=== PATIENT | female | born 1995 | race Caucasian/White ===

== ENCOUNTER 2017-10-16 18:25 | Emergency (ER) | payer OTHER ==
[2017-10-16] MEDS ORDERED: Sodium Chloride 0.9% 1000 ML 1,000 ML IV STA ×2 (18:48→20:12)
[2017-10-16] MEDS ORDERED: SUBLIMAZE 100 MCG/2 ML IV ONE (18:48)
[2017-10-16] MEDS ORDERED: Zofran 4 MG/2 ML VIAL IV ONE ×2 (18:48→20:09)
--- NOTE | 2017-10-16 18:52 | ERPHSYRPT ---
- History of Present Illness Historian: patient Exam Limitations: no limitations Patient Subjective Stated Complaint: pt states she had a sudden onset of right flank pain and right lower quads abdominal pain. states she has vomitied a few times. Triage Nursing Assessment: pt pale, warm, dry. abdomen soft, nontender. bowel sounds present in all 4 quaDS. Timing/Duration: today Quality: cramping Abdominal Pain Onset Location: RLQ Pain Radiation: back Severity of Pain-Max: severe Severity of Pain-Current: severe Modifying Factors: Improves With: nothing Associated Symptoms: loss of appetite, nausea, vomiting Previous symptoms: no prior history Hx Tetanus, Diphtheria Vaccination/Date Given: Yes (UP TO DATE) Hx Influenza Vaccination/Date Given: No Hx Pneumococcal Vaccination/Date Given: No Immunizations Up to Date: Yes <SANDHYA MARREROYESH - Last Filed: 10/16/17 18:54> <OFELIA BEGUM - Last Filed: 10/16/17 20:47> - History of Present Illness Time Seen by Provider: 10/16/17 18:50 Physician History: pt states she had a sudden onset of right flank pain and right lower quads abdominal pain. states she has vomitied a few times. (JANES,GERA) Allergies/Adverse Reactions: Penicillins Allergy (Verified 10/16/17 18:43) - Review of Systems Constitutional: No Fever, No Chills Eyes: No Symptoms Ears, Nose, & Throat: No Symptoms Respiratory: No Cough, No Dyspnea Cardiac: No Chest Pain, No Edema, No Syncope Abdominal/Gastrointestinal: Abdominal Pain, Nausea, Vomiting, No Diarrhea Genitourinary Symptoms: No Dysuria Musculoskeletal: No Back Pain, No Neck Pain Skin: No Rash Neurological: No Dizziness, No Focal Weakness, No Sensory Changes Psychological: No Symptoms Endocrine: No Symptoms All Other Systems: Reviewed and Negative <JANES,GERA - Last Filed: 10/16/17 18:54> - Past Medical History Pertinent Past Medical History: No Neurological History: No Pertinent History ENT History: No Pertinent History Cardiac History: No Pertinent History Respiratory History: No Pertinent History Endocrine Medical History: No Pertinent History Musculoskeletal History: No Pertinent History GI Medical History: No Pertinent History History: No Pertinent History Psycho-Social History: Anxiety, Other Female Reproductive Disorders: No Pertinent History - Past Surgical History Past Surgical History: No Musculoskeletal: Orthopedic Surgery Other Surgical History: braces on bilat feet with no surgery - Social History Smoking Status: Current every day smoker How long have you smoked: 5 Exposure to second hand smoke: Yes Drug Use: none Patient Lives Alone: No - Female History Hx Last Menstrual Period: NOW Hx Now: No <JANES Last Filed: 10/16/17 18:54> - Physical Exam General Appearance: no apparent distress, alert Eye Exam: PERRL/EOMI, eyes nml inspection Ears, Nose, Throat Exam: normal ENT inspection, pharynx normal, moist mucous membranes Neck Exam: normal inspection, non-tender, supple, full range of motion Respiratory Exam: normal breath sounds, lungs clear, No respiratory distress Cardiovascular Exam: regular rate/rhythm, normal heart sounds Gastrointestinal/Abdomen Exam: soft, tenderness (RLQ), No mass Back Exam: normal inspection, normal range of motion, No CVA tenderness, No vertebral tenderness Extremity Exam: normal inspection, normal range of motion, pelvis stable Neurologic Exam: alert, oriented x 3, cooperative, normal mood/affect, nml cerebellar function, sensation nml, No motor deficits Skin Exam: normal color, warm, dry SpO2: 97 Oxygen Delivery: Room Air <JANES - Last Filed: 10/16/17 18:54> - Nursing Vital Signs Nursing Vital Signs: Initial Vital Signs Temperature 98.8 F 10/16/17 18:39 Pulse Rate 74 10/16/17 18:39 Respiratory Rate 18 10/16/17 18:39 Blood Pressure 136/77 10/16/17 18:39 O2 Sat by Pulse Oximetry 97 10/16/17 18:39 Pain Scale Pain Intensity 2 - Course Nursing assessment & vital signs reviewed: Yes - CT Exams Abdomen/Pelvis CT Interpretation: Tele-radiologist Report <JANES Filed: 10/16/17 18:54> Ordered Tests: Active Orders 24 hr Category Date Time Status Clean Catch Urine Specimen STAT Care 10/16/17 18:45 Active IV Insertion STAT Care 10/16/17 18:44 Active ABDOMEN AND PELVIS W/0 CONTRAS [CT] Stat Exams 10/16/17 18:49 Taken AMYLASE Stat Lab 10/16/17 19:03 Completed CBC W DIFF Stat Lab 10/16/17 19:03 Completed CMP Stat Lab 10/16/17 19:03 Completed CULTURE,URINE Stat Lab 10/16/17 19:03 Received HCG QUALITATIVE,SERUM Stat Lab 10/16/17 19:05 Completed LIPASE Stat Lab 10/16/17 19:03 Completed Lactic Acid Stat Lab 10/16/17 19:07 Completed UA W/ MICROSCOPIC Stat Lab 10/16/17 19:03 Completed Urine Triage Profile Stat Lab 10/16/17 19:03 Completed Medication Summary Generic Name Dose Route Start Last Admin Trade Name Alfreda PRN Reason Stop Dose Admin Sodium Chloride 1,000 mls @ 999 mls/hr 10/16/17 20:12 10/16/17 20:29 Sodium Chloride 0.9% 1000 Ml IV 10/16/17 21:12 999 mls/hr .Q1H1M STA Administration Ceftriaxone Sodium/Dextrose 1 g in 50 mls @ 100 mls/hr 10/16/17 20:13 20:29 Rocephin 1 Gm-D5w 50 Ml Bag IV 10/16/17 20:42 100 mls/hr STAT STA Administration Tamsulosin HCl 0.4 mg 10/17/17 20:07 Flomax 0.4 Mg PO 10/17/17 20:08 ONCE ONE Discontinued Medications Generic Name Dose Route Start Last Admin Trade Name Alfreda PRN Reason Stop Dose Admin Ciprofloxacin 500 mg 10/16/17 20:08 Cipro 500 Mg PO 10/16/17 20:09 ONCE ONE Fentanyl Citrate 50 mcg 10/16/17 18:48 10/16/17 18:56 Sublimaze 100 Mcg/2 Ml IV 10/16/17 18:49 50 mcg STAT ONE Administration Fentanyl Citrate Confirm 10/16/17 18:53 Sublimaze 100 Mcg/2 Ml Administered 10/16/17 18:54 Dose 100 mcg .ROUTE .STK-MED ONE Sodium Chloride 1,000 mls @ 999 mls/hr 10/16/17 18:48 10/16/17 18:56 Sodium Chloride 0.9% 1000 Ml IV 10/16/17 19:48 999 mls/hr .Q1H1M STA Administration Sodium Chloride Confirm 10/16/17 18:53 Sodium Chloride 0.9% 1000 Ml Administered 10/16/17 18:54 Dose 1,000 mls @ ud .ROUTE .STK-MED ONE Sodium Chloride Confirm 10/16/17 20:27 Sodium Chloride 0.9% 1000 Ml Administered 10/16/17 20:28 Dose 1,000 mls @ ud .ROUTE .STK-MED ONE Ceftriaxone Sodium/Dextrose Confirm 10/16/17 20:27 Rocephin 1 Gm-D5w 50 Ml Bag Administered 10/16/17 20:28 Dose 1 g in 50 mls @ ud IV .STK-MED ONE Ketorolac Tromethamine 30 mg 10/16/17 19:56 10/16/17 20:04 Toradol 30 Mg Injection IV 10/16/17 19:57 30 mg STAT ONE Administration Ketorolac Tromethamine Confirm 10/16/17 20:03 Toradol 30 Mg Injection Administered 10/16/17 20:04 Dose 30 mg .ROUTE .STK-MED ONE Ondansetron HCl 4 mg 10/16/17 18:48 10/16/17 18:57 Zofran 4 Mg/2 Ml Vial IV 10/16/17 18:49 4 mg STAT ONE Administration Ondansetron HCl Confirm 10/16/17 18:53 Zofran 4 Mg/2 Ml Vial Administered 10/16/17 18:54 Dose 4 mg .ROUTE .STK-MED ONE Ondansetron HCl 4 mg 10/16/17 20:09 10/16/17 20:11 Zofran 4 Mg/2 Ml Vial IV 10/16/17 20:10 4 mg STAT ONE Administration Ondansetron HCl Confirm 10/16/17 20:10 Zofran 4 Mg/2 Ml Vial Administered 10/16/17 20:11 Dose 4 mg .ROUTE .STK-MED ONE Lab/Rad Data: Laboratory Result Diagrams 10/16/17 19:03 10/16/17 19:03 Laboratory Results 10/16/17 10/16/17 10/16/17 Range/Units 19:07 19:05 19:03 WBC (4.0-10.5) K/mm3 RBC (4.1-5.4) M/mm3 Hgb (12.0-16.0) gm/dl Hct (35-47) % MCV (78-100) fl MCH (26-32) pg MCHC (32-36) g/dl RDW (11.5-14.0) % Plt Count (150-450) K/mm3 MPV (6-9.5) fl Gran % (36.0-66.0) % Lymphocytes % (24.0-44.0) % Monocytes % (0.0-12.0) % Eosinophils % (0.00-5.0) % Basophils % (0.0-0.4) % Basophils # (0-0.4) Sodium (136-145) mEq/L Potassium (3.5-5.1) mEq/L Chloride (98-107) mEq/L Carbon Dioxide (21-32) mEq/L Anion Gap (5-15) MEQ/L BUN (9-20) mg/dL Creatinine (0.55-1.30) mg/dl Estimated GFR ML/MIN Glucose (70-110) MG/DL Lactic Acid 1.2 (0.4-2.0) Calcium (8.5-10.1) mg/dL Total Bilirubin (0.2-1.0) mg/dL AST (15-37) U/L ALT (12-78) U/L Alkaline Phosphatase (46-116) U/L Serum Total Protein (6.4-8.2) gm/dL Albumin (3.4-5.0) g/dL Amylase (25-115) U/L Lipase (73-393) U/L Serum , Qual NEGATIVE (Negative) Ur Collection Type Urine Color (YELLOW) Urine Appearance (CLEAR) Urine pH (5-6) Ur Specific [place] (1.005-1.025) Urine Protein (Negative) Urine Ketones (NEGATIVE) Urine Blood (0-5) Antonio/ul Urine Nitrite (NEGATIVE) Urine Bilirubin (NEGATIVE) Urine Urobilinogen (0-1) mg/dL Ur Leukocyte Esterase (NEGATIVE) Urine Microscopic RBC (0-2) /HPF Urine Microscopic WBC (0-5) /HPF Ur Epithelial Cells (FEW) /HPF Urine Bacteria (NEGATIVE) /HPF Urine Culture Reflexed (NO) Urine Glucose (NEGATIVE) mg/dL Urine Opiates Level NEG. (NEGATIVE) Ur Methadone NEG. (NEGATIVE) Urine Barbiturates NEG. (NEGATIVE) Ur Phencyclidine (PCP) NEG. (NEGATIVE) Urine Amphetamine NEG. (NEGATIVE) U Benzodiazepine Level NEG. (NEGATIVE) Urine Cocaine NEG. (NEGATIVE) Urine Marijuana (THC) POS. (NEGATIVE) Specimen Received 10/16/17 10/16/17 10/16/17 Range/Units 19:03 19:03 19:03 WBC 16.0 H (4.0-10.5) K/mm3 RBC 4.23 (4.1-5.4) M/mm3 Hgb 13.3 (12.0-16.0) gm/dl Hct 40.1 (35-47) % MCV 94.8 (78-100) fl MCH 31.4 (26-32) pg MCHC 33.2 (32-36) g/dl RDW 12.7 (11.5-14.0) % Plt Count 180 (150-450) K/mm3 MPV 11.6 H (6-9.5) fl Gran % 79.1 H (36.0-66.0) % Lymphocytes % 14.5 L (24.0-44.0) % Monocytes % 6.0 (0.0-12.0) % Eosinophils % 0.3 (0.00-5.0) % Basophils % 0.1 (0.0-0.4) % Basophils # 0.02 (0-0.4) Sodium 140 (136-145) mEq/L Potassium 3.5 (3.5-5.1) mEq/L Chloride 105 (98-107) mEq/L Carbon Dioxide 26.8 (21-32) mEq/L Anion Gap 12.1 (5-15) MEQ/L BUN 14 (9-20) mg/dL Creatinine 0.94 (0.55-1.30) mg/dl Estimated GFR > 60 ML/MIN Glucose 110 (70-110) MG/DL Lactic Acid (0.4-2.0) Calcium 9.1 (8.5-10.1) mg/dL Total Bilirubin 0.40 (0.2-1.0) mg/dL AST 20 (15-37) U/L ALT 22 (12-78) U/L Alkaline Phosphatase 62 (46-116) U/L Serum Total Protein 8.0 (6.4-8.2) gm/dL Albumin 4.4 (3.4-5.0) g/dL Amylase 37 (25-115) U/L Lipase 106 (73-393) U/L Serum , Qual (Negative) Ur Collection Type VOID Urine Color DARK YELLOW (YELLOW) Urine Appearance CLOUDY (CLEAR) Urine pH 7.0 (5-6) Ur Specific [place] 1.020 (1.005-1.025) Urine Protein 30 (Negative) Urine Ketones MODERATE (NEGATIVE) Urine Blood 250 (0-5) Antonio/ul Urine Nitrite POSITIVE (NEGATIVE) Urine Bilirubin SMALL (NEGATIVE) Urine Urobilinogen NORMAL (0-1) mg/dL Ur Leukocyte Esterase TRACE (NEGATIVE) Urine Microscopic RBC 25-50 (0-2) /HPF Urine Microscopic WBC 10-15 (0-5) /HPF Ur Epithelial Cells MODERATE (FEW) /HPF Urine Bacteria MODERATE (NEGATIVE) /HPF Urine Culture Reflexed YES (NO) Urine Glucose NEGATIVE (NEGATIVE) mg/dL Urine Opiates Level (NEGATIVE) Ur Methadone (NEGATIVE) Urine Barbiturates (NEGATIVE) Ur Phencyclidine (PCP) (NEGATIVE) Urine Amphetamine (NEGATIVE) U Benzodiazepine Level (NEGATIVE) Urine Cocaine (NEGATIVE) Urine Marijuana (THC) (NEGATIVE) Specimen Received 10/16/17 1900 <GERA MARRERO - Last Filed: 10/16/17 18:54> - Progress Progress: improved <OFELIA BEGUM - Last Filed: 10/16/17 20:47> - Progress Progress Note: 10/16/17 20:36 Pt feels better after receiving toradol, zofran and NS fluids. Pt has a white count of 16,000. The CT scan shows a 2 mm stone in the right ureter and the UA is positive for a UTI. Pt was started on IV rocephin, additional fluids and a dose of flomax. Pt will be d/c home on zofran, toradol, flomax and cipro for UTI and kidney stone. (OFELIA BEGUM) <GERA MARRERO - Last Filed: 10/16/17 18:54> - Departure Time of Disposition: 20:38 Departure Disposition: Home Critical Care Time: No <OFELIA BEGUM - Last Filed: 10/16/17 20:47> - Departure Clinical Impression: Kidney stone UTI (urinary tract infection) Qualifiers: Urinary tract infection type: acute cystitis Hematuria presence: without hematuria Qualified Code(s): N30.00 - Acute cystitis without hematuria Condition: Stable Referrals: JURGEN,IRVING S [Primary Care Provider] - Instructions: Kidney Stones (DC), Urinary Tract Infection, Adult (DC) Additional Instructions: Return to the ER if you should continue to have abdominal pain, back pain, urinary symptoms, nausea, vomiting, fever or chills. Finish the antibiotics until completion. Prescriptions: Ciprofloxacin [Cipro 500 MG] 500 mg PO BID #14 tablet Ketorolac Tromethamine [Toradol] 10 mg PO QID PRN #20 tablet PRN Reason: Pain Promethazine HCl 25 mg [Phenergan 25 mg] 25 mg PO TID PRN #8 tablet PRN Reason: Nausea/Vomiting Tamsulosin HCl 0.4 mg [Flomax 0.4 MG] 0.4 mg PO DAILY #5 cap
[2017-10-16] MEDS ORDERED: Zofran 4 MG/2 ML VIAL ONE ×2 (18:53→20:10)
[2017-10-16] MEDS ORDERED: Sodium Chloride 0.9% 1000 ML 1,000 ML ONE ×2 (18:53→20:27)
[2017-10-16] MEDS ORDERED: SUBLIMAZE 100 MCG/2 ML ONE (18:53)
[2017-10-16 19:08] LABS: BASOPHIL % 0.1 % (0.0-0.4); Basophil (Absolute #) 0.02 (0-0.4); Eosinophil % 0.3 % (0.00-5.0); Eosinophil (Absolute #) 0.04 (0-0.5); Granulocyte Absolute (ANC) 12.62 (1.4-6.9); Granulocytes % 79.1 % (36.0-66.0); Hematocrit 40.1 % (35-47); Hemoglobin 13.3 gm/dl (12.0-16.0); Lymphocyte (Absolute #) 2.32 (1.0-4.6); Lymphocytes % 14.5 % (24.0-44.0); Mean Cell Volume 94.8 fl (78-100); Mean Corpuscular Hemoglobin 31.4 pg (26-32); Mean Corpuscular Hgb Concent. 33.2 g/dl (32-36); Mean Platelet Volume 11.6 fl (6-9.5); Monocyte (Absolute #) 0.96 (0.0-1.3); Platelet Count 180 K/mm3 (150-450); Red Blood Count 4.23 M/mm3 (4.1-5.4); Red Cell Distribution Width 12.7 % (11.5-14.0)
[2017-10-16 19:17] LABS: Amphetamine,Urine NEG. (NEGATIVE); Barbiturate,Urine NEG. (NEGATIVE); Benzodiazepine,Urine NEG. (NEGATIVE); Cocaine,Urine NEG. (NEGATIVE); Methadone,Urine NEG. (NEGATIVE); Opiate,Urine NEG. (NEGATIVE); PCP,Urine NEG. (NEGATIVE); THC,Urine POS. (NEGATIVE)
[2017-10-16 19:21] LABS: Appearance CLOUDY (CLEAR); Bilirubin SMALL (NEGATIVE); Blood 250 Ery/ul (0-5); Glucose NEGATIVE (NEGATIVE); Ketones MODERATE (NEGATIVE); Leukocyte Esterase TRACE (NEGATIVE); Nitrite POSITIVE (NEGATIVE); Protein,Urine Dip 30 (Negative); Urobilinogen NORMAL mg/dL (0-1)
[2017-10-16 19:22] LABS: Bacteria MODERATE /HPF (NEGATIVE); Epithelial Cells MODERATE /HPF (FEW)
[2017-10-16 19:27] LABS: ALBUMIN 4.4 g/dL (3.4-5.0); ALKALINE PHOSPHATASE 62 U/L (46-116); AMYLASE 37 U/L (25-115); ANION GAP 12.1 MEQ/L (5-15); BLOOD UREA NITROGEN 14 mg/dL (9-20); CHLORIDE 105 mEq/L (98-107); Calcium 9.1 mg/dL (8.5-10.1); Carbon Dioxide 26.8 mEq/L (21-32); Creatinine 1 0.94 mg/dl (0.55-1.30); EST GLOMERULAR FILTRATION RATE > 60 ML/MIN; Glucose 110 MG/DL (70-110); LIPASE 106 U/L (73-393); Potassium 3.5 mEq/L (3.5-5.1); SGOT/AST 20 U/L (15-37); SGPT/ALT 22 U/L (12-78); SODIUM 140 mEq/L (136-145)
[2017-10-16] MEDS ORDERED: TORAdol 30 mg Injection IV ONE (19:56)
[2017-10-16] MEDS ORDERED: TORAdol 30 mg Injection ONE (20:03)
[2017-10-16] MEDS ORDERED: Cipro 500 MG PO ONE (20:08)
[2017-10-16] MEDS ORDERED: ROCEPHIN 1 Gm-D5w 50 ml Bag** 1 G/50 ML IVPB IV STA (20:13)
[2017-10-16] MEDS ORDERED: ROCEPHIN 1 Gm-D5w 50 ml Bag** 1 G/50 ML IVPB IV ONE (20:27)
[2017-10-16] MEDS ORDERED: Flomax 0.4 MG ONE (20:47)
[2017-10-16 20:52] VITALS: BP 121/65; PULSE 72; O2SAT 100
--- NOTE | 2017-10-17 08:48 | XRAY ---
Indication: Right lower quadrant pain. Elevated WBC. Multiple contiguous axial images obtained through the abdomen and pelvis without contrast as ordered. Comparison: None Lung bases are clear. Heart is not enlarged. Noncontrasted stomach and bowel loops appear nonobstructed. Normal appendix. No free fluid/air. There is a 2-3 mm distal right ureteral calculus just proximal to the UVJ. Proximal right ureter is slightly prominent along with mild hydronephrosis consistent with partial obstructive uropathy. No perinephric fluid. Remaining liver, gallbladder, pancreas, adrenal glands, kidneys, ureters, bladder, uterus, and aorta appear unremarkable for noncontrast exam. Osseous structures intact. Impression: 1. 2-3 mm distal right ureteral calculus producing partial obstruction. 2. Remaining CT abdomen/pelvis without contrast exam is negative. Comment: Preliminary interpretation was made by [facility]. No discrepancy. CTDI 17.17
[2017-10-17] MEDS ORDERED: Flomax 0.4 MG PO ONE (20:07)
== END 2017-10-16 21:19 | disposition home or self-care (01) ==
LOC: ED 18:25
DX: N20.0 Calculus of kidney (principal); N30.00 Acute cystitis without hematuria
CPT/HCPCS: 36000; 36415; 74176; 80053; 80307; 81000; 82150; 83605; 83690; 84703; 85025; 87086; 96365; 96374; 96375; 96376; 99284; J0696; J1885; J2405; J3010; A9270-GY

== ENCOUNTER 2017-12-24 15:00 | Emergency (ER) | payer MEDICAID ==
[2017-12-24 15:20] LABS: Hematocrit 37.5 % (35-47); Hemoglobin 12.7 gm/dl (12.0-16.0); Mean Corpuscular Hemoglobin 31.8 pg (26-32); Mean Corpuscular Hgb Concent. 33.9 g/dl (32-36); Mean Platelet Volume 11.6 fl (6-9.5); Platelet Count 218 K/mm3 (150-450); Red Blood Count 3.99 M/mm3 (4.1-5.4); Red Cell Distribution Width 13.3 % (11.5-14.0); White Blood Count 14.8 K/mm3 (4.0-10.5)
[2017-12-24] MEDS ORDERED: TYLENOL 325 MG PO ONE (15:25)
[2017-12-24 15:26] VITALS: O2SAT 100
[2017-12-24] MEDS ORDERED: TYLENOL 325 MG ONE (15:32)
--- NOTE | 2017-12-24 15:32 | ERPHSYRPT ---
- History of Present Illness Time Seen by Provider: 12/24/17 15:13 Source: patient, family () Patient Subjective Stated Complaint: CHEST PRESSURE AND LEFT ARM NUMBNESS FOR TWO DAYS. DENIES ANY HEART HISTORY. STATES IF SHE LAYS ON HER LEFT SIDE WITH HAND BETWEEN BREASTS IT GOES AWAY. ALSO HAVING SOB WITH EXERTION. IS 10 WKS . Triage Nursing Assessment: AMBULATED TO ROOM PER SELF. SKIN W/D, COLOR NORMAL, RESP NONLABORED. GOOD CAP REFILL. HEART TONES REGULAR, NORMAL TONE. RADIAL PULSE PRESENT AND NORMAL. NO EDEMA NOTED. Physician History: CC: chest discomfort HX: 22 y/o scheduled to see Dr Larson this month. She has feeling of chest discomfort, dizziness and lightheadedness when up. Denies shortness of breath today. No cough or fever. Was worried about a pain sensation in her left arm. No vaginal bleeding. Some dysuria. No hx of venous thromboembolic disease nor heart disease. She had a migraine this week with spots in her eyes as a prodrome for which she took a tylenol. Severity: mild Allergies/Adverse Reactions: Penicillins Allergy (Verified 12/24/17 16:02) Home Medications: No Reportable Medications [No Reported Medications] 12/24/17 [History] Hx Tetanus, Diphtheria Vaccination/Date Given: Yes Hx Influenza Vaccination/Date Given: No Hx Pneumococcal Vaccination/Date Given: No - Review of Systems Constitutional: Malaise, No Fever, No Chills Eyes: No Symptoms Ears, Nose, & Throat: No Symptoms Respiratory: No Cough, No Dyspnea Cardiac: Chest Pain, No Edema, No Palpitations, No Syncope Abdominal/Gastrointestinal: No Abdominal Pain, No Nausea, No Vomiting Genitourinary Symptoms: Dysuria, , No Vaginal Bleeding, No Vaginal Discharge Musculoskeletal: No Back Pain, No Neck Pain Skin: No Rash Neurological: Headache (one day), No Focal Weakness, No Parasthesia All Other Systems: Reviewed and Negative - Past Medical History Pertinent Past Medical History: Yes Neurological History: No Pertinent History ENT History: No Pertinent History Cardiac History: No Pertinent History Respiratory History: No Pertinent History Endocrine Medical History: No Pertinent History Musculoskeletal History: No Pertinent History GI Medical History: No Pertinent History History: No Pertinent History Psycho-Social History: Anxiety, Other Female Reproductive Disorders: No Pertinent History - Past Surgical History Past Surgical History: No Musculoskeletal: Orthopedic Surgery Other Surgical History: braces on bilat feet with no surgery - Social History Smoking Status: Never smoker How long have you smoked: 5 Exposure to second hand smoke: Yes Drug Use: none Patient Lives Alone: No - Female History Hx Last Menstrual Period: 10/13/17 Hx Now: Yes (10 WEEKS) - Nursing Vital Signs Nursing Vital Signs: Initial Vital Signs Temperature 97.7 F 12/24/17 15:05 Pulse Rate 84 12/24/17 15:05 Respiratory Rate 16 12/24/17 15:05 Blood Pressure 125/72 12/24/17 15:05 O2 Sat by Pulse Oximetry 100 12/24/17 15:05 Pain Scale Pain Intensity 2 - Physical Exam General Appearance: alert Eye Exam: PERRL/EOMI Ears, Nose, Throat Exam: normal ENT inspection, moist mucous membranes Neck Exam: normal inspection, non-tender, supple Respiratory Exam: normal breath sounds, lungs clear, No respiratory distress Cardiovascular Exam: regular rate/rhythm, No murmur, No friction rub, No gallop , No tachycardia Gastrointestinal/Abdomen Exam: soft, No tenderness, No distention Back Exam: normal inspection, No vertebral tenderness Extremity Exam: normal inspection, normal range of motion Neurologic Exam: alert, oriented x 3, cooperative, operational communication chief II-XII nml as tested, sensation nml, No motor deficits Skin Exam: warm, dry, No rash SpO2 Interpretation: normal SpO2: 100 Oxygen Delivery: Room Air Procedures - Limited OB Ultrasound Results: + IUP (10+2 week IUP with good movement) - Course Nursing assessment & vital signs reviewed: Yes EKG Interpreted by Me: RATE (101), Sinus Rhythm, NORMAL AXIS, NORMAL INTERVALS ( QTc 446), NORMAL QRS, NORMAL ST-T Ordered Tests: Active Orders 24 hr Category Date Time Status Clean Catch Urine Specimen STAT Care 12/24/17 15:13 Active EKG-ER Only STAT Care 12/24/17 15:13 Active IV Insertion STAT Care 12/24/17 15:13 Active PO Fluid Challenge STAT Care 12/24/17 15:25 Active CBC W DIFF Stat Lab 12/24/17 15:00 Completed CMP Stat Lab 12/24/17 15:00 Completed CULTURE,URINE Stat Lab 12/24/17 16:01 Received HCG,QUALITATIVE URINE Stat Lab 12/24/17 16:01 Completed Manual Differential NC Stat Lab 12/24/17 15:00 Completed UA W/ MICROSCOPIC Stat Lab 12/24/17 16:01 Completed Medication Summary Discontinued Medications Generic Name Dose Route Start Last Admin Trade Name Alfreda PRN Reason Stop Dose Admin Acetaminophen 650 mg 12/24/17 15:25 12/24/17 15:33 Tylenol 325 Mg PO 12/24/17 15:26 650 mg STAT ONE Administration Acetaminophen Confirm 12/24/17 15:32 Tylenol 325 Mg Administered 12/24/17 15:33 Dose 650 mg .ROUTE .STK-MED ONE Lab/Rad Data: Laboratory Result Diagrams 12/24/17 15:00 12/24/17 15:00 Laboratory Results 12/24/17 12/24/17 12/24/17 Range/Units 16:01 16:01 15:00 WBC (4.0-10.5) K/mm3 RBC (4.1-5.4) M/mm3 Hgb (12.0-16.0) gm/dl Hct (35-47) % MCV (78-100) fl MCH (26-32) pg MCHC (32-36) g/dl RDW (11.5-14.0) % Plt Count (150-450) K/mm3 MPV (6-9.5) fl Segmented Neutrophils (36.0-66.0) % Lymphocytes (Manual) (24-44) % Monocytes (Manual) (0.0-12.0) % Eosinophils (Manual) (0.00-3.0) % Differential Comment Platelet Estimate (NORMAL) Sodium 139 (137-145) mmol/L Potassium 3.7 (3.5-5.1) mmol/L Chloride 104 (98-107) mmol/L Carbon Dioxide 23 (22-30) mmol/L Anion Gap 15.9 H (5-15) MEQ/L BUN 12 (7-17) mg/dL Creatinine 0.53 (0.52-1.04) mg/dL Estimated GFR > 60.0 ML/MIN Glucose 84 (74-106) mg/dL Calcium 9.5 (8.4-10.2) mg/dL Total Bilirubin < 0.10 L (0.2-1.3) mg/dL AST 18 (14-36) U/L ALT 29 (0-35) U/L Alkaline Phosphatase 48 (38-126) U/L Serum Total Protein 7.3 (6.3-8.2) g/dL Albumin 4.3 (3.5-5.0) g/dL Ur Collection Type CLEAN CATCH Urine Color YELLOW (YELLOW) Urine Appearance CLEAR (CLEAR) Urine pH 6.5 (5-6) Ur Specific [place] 1.010 (1.005-1.025) Urine Protein NEGATIVE (Negative) Urine Ketones NEGATIVE (NEGATIVE) Urine Blood 250 (0-5) Antonio/ul Urine Nitrite NEGATIVE (NEGATIVE) Urine Bilirubin NEGATIVE (NEGATIVE) Urine Urobilinogen NORMAL (0-1) mg/dL Ur Leukocyte Esterase TRACE (NEGATIVE) Urine Microscopic RBC 10-15 (0-2) /HPF Urine Microscopic WBC 2-5 (0-5) /HPF Ur Epithelial Cells MODERATE (FEW) /HPF Urine Bacteria MANY (NEGATIVE) /HPF Urine Culture Reflexed YES (NO) Urine Glucose NEGATIVE (NEGATIVE) mg/dL Urine HCG, Qual POSITIVE (Negative) Specimen Received 12/24/17 1601 12/24/17 Range/Units 15:00 WBC 14.8 H (4.0-10.5) K/mm3 RBC 3.99 L (4.1-5.4) M/mm3 Hgb 12.7 (12.0-16.0) gm/dl Hct 37.5 (35-47) % MCV 94.0 (78-100) fl MCH 31.8 (26-32) pg MCHC 33.9 (32-36) g/dl RDW 13.3 (11.5-14.0) % Plt Count 218 (150-450) K/mm3 MPV 11.6 H (6-9.5) fl Segmented Neutrophils 59 (36.0-66.0) % Lymphocytes (Manual) 34 (24-44) % Monocytes (Manual) 6 (0.0-12.0) % Eosinophils (Manual) 1 (0.00-3.0) % Differential Comment NORMAL Platelet Estimate NORMAL (NORMAL) Sodium (137-145) mmol/L Potassium (3.5-5.1) mmol/L Chloride (98-107) mmol/L Carbon Dioxide (22-30) mmol/L Anion Gap (5-15) MEQ/L BUN (7-17) mg/dL Creatinine (0.52-1.04) mg/dL Estimated GFR ML/MIN Glucose (74-106) mg/dL Calcium (8.4-10.2) mg/dL Total Bilirubin (0.2-1.3) mg/dL AST (14-36) U/L ALT (0-35) U/L Alkaline Phosphatase (38-126) U/L Serum Total Protein (6.3-8.2) g/dL Albumin (3.5-5.0) g/dL Ur Collection Type Urine Color (YELLOW) Urine Appearance (CLEAR) Urine pH (5-6) Ur Specific [place] (1.005-1.025) Urine Protein (Negative) Urine Ketones (NEGATIVE) Urine Blood (0-5) Antonio/ul Urine Nitrite (NEGATIVE) Urine Bilirubin (NEGATIVE) Urine Urobilinogen (0-1) mg/dL Ur Leukocyte Esterase (NEGATIVE) Urine Microscopic RBC (0-2) /HPF Urine Microscopic WBC (0-5) /HPF Ur Epithelial Cells (FEW) /HPF Urine Bacteria (NEGATIVE) /HPF Urine Culture Reflexed (NO) Urine Glucose (NEGATIVE) mg/dL Urine HCG, Qual (Negative) Specimen Received - Progress Progress Note: 12/24/17 15:32 She is not short of breath. Some unusual chest discomfort. Vitals sign ok. Will check labs as she has not had prental labs. She thinks around 10 weeks although has not had a sonogram as yet. Encouraged po fluids. 12/24/17 16:51 She drank water. Feels better. Wants to go home. Advised follow up with Dr Larson. Counseled pt/family regarding: lab results, diagnosis, need for follow-up - Departure Time of Disposition: 16:52 Departure Disposition: Home Clinical Impression: Chest pain, 10 weeks gestation of Condition: Stable Critical Care Time: No Referrals: GONZALEZ LARSON MD [Primary Care Provider] - Instructions: Chest Pain (DC), Medications and Additional Instructions: Tylenol if needed for discomfort. Drink plenty of fluids. Follow up with Dr Larson. Return for problems or concerns.
[2017-12-24 15:36] LABS: ALBUMIN 4.3 g/dL (3.5-5.0); ALKALINE PHOSPHATASE 48 U/L (38-126); ANION GAP 15.9 MEQ/L (5-15); BILIRUBIN,TOTAL < 0.10 mg/dL (0.2-1.3); BLOOD UREA NITROGEN 12 mg/dL (7-17); CHLORIDE 104 mmol/L (98-107); Calcium 9.5 mg/dL (8.4-10.2); Carbon Dioxide 23 mmol/L (22-30); Creatinine 1 0.53 mg/dL (0.52-1.04); Glucose 84 mg/dL (74-106); Potassium 3.7 mmol/L (3.5-5.1); SGOT/AST 18 U/L (14-36); SGPT/ALT 29 U/L (0-35); SODIUM 139 mmol/L (137-145); Total Protein 7.3 g/dL (6.3-8.2)
[2017-12-24 16:01] LABS: Eosinophil 1 % (0.00-3.0); Lymphocytes 34 % (24-44); Monocyte 6 % (0.0-12.0); Neutrophils 59 % (36.0-66.0); Platelet Estimate NORMAL (NORMAL); Total Cells Counted 100
[2017-12-24 16:07] LABS: Appearance CLEAR (CLEAR); Bilirubin NEGATIVE (NEGATIVE); Blood 250 Ery/ul (0-5); Glucose NEGATIVE (NEGATIVE); Ketones NEGATIVE (NEGATIVE); Leukocyte Esterase TRACE (NEGATIVE); Nitrite NEGATIVE (NEGATIVE); Ph 6.5 (5-6); Protein,Urine Dip NEGATIVE (Negative); Urobilinogen NORMAL mg/dL (0-1)
[2017-12-24 16:13] LABS: Bacteria MANY /HPF (NEGATIVE); Epithelial Cells MODERATE /HPF (FEW)
[2017-12-24 17:15] VITALS: BP 103/76; PULSE 76
== END 2017-12-24 17:15 | disposition home or self-care (01) ==
LOC: ED 15:00
DX: R07.89 Other chest pain (principal); R06.02 Shortness of breath; Z33.1 Pregnant state, incidental; Z34.91 Encounter for supervision of normal pregnancy, unspecified, first trimester
CPT/HCPCS: 36000; 36415; 80053; 81000; 84703; 85025; 87086; 93005; 99283; 99284; A9270-GY

== ENCOUNTER 2018-01-24 08:17 | Emergency (ER) | payer MEDICAID ==
[2018-01-24] MEDS ORDERED: Lactated Ringers 1,000 ML IV ONE ×2 (08:26→08:33)
[2018-01-24] MEDS ORDERED: Zofran 4 MG/2 ML VIAL IV ONE (08:26)
--- NOTE | 2018-01-24 08:30 | ERPHSYRPT ---
- History of Present Illness Time Seen by Provider: 01/24/18 08:28 Source: patient Patient Subjective Stated Complaint: pt reports confirmed miscarriage jan 17 2018 -states she is scheduled for dc this -reports that [place] 30 min ago she began bleeding-reports clots-unsure of amount of blood loss-pt had a towel under her-has placed a pad at this time-reports cramping Triage Nursing Assessment: pt pale warm and [id number]-sttsy-[id number] all questions correctly-resp easy and nonlabored-mother at bedside and pt appears calm at this time Physician History: mild to mod lower abdominal cramps today, +vaginal bleeding w/ clots, lmp 10/13, +NV, , not dm, no fever Allergies/Adverse Reactions: Penicillins Allergy (Verified 01/24/18 08:28) Home Medications: Codeine Phosphate/APAP #3 [Tylenol #3 Tablet] 1 tab PO UD 01/24/18 [History] Naproxen 500 mg [Naprosyn 500 MG] 500 mg PO UD 01/24/18 [History] Hx Tetanus, Diphtheria Vaccination/Date Given: Yes Hx Influenza Vaccination/Date Given: No Hx Pneumococcal Vaccination/Date Given: No - Review of Systems Constitutional: No Fever Respiratory: No Dyspnea Cardiac: No Chest Pain Abdominal/Gastrointestinal: Abdominal Pain Genitourinary Symptoms: Vaginal Bleeding Neurological: No Dizziness - Past Medical History Pertinent Past Medical History: Yes Neurological History: No Pertinent History ENT History: No Pertinent History Cardiac History: No Pertinent History Respiratory History: No Pertinent History Endocrine Medical History: No Pertinent History Musculoskeletal History: No Pertinent History GI Medical History: No Pertinent History History: No Pertinent History Psycho-Social History: Anxiety Female Reproductive Disorders: No Pertinent History - Past Surgical History Past Surgical History: No Musculoskeletal: Orthopedic Surgery Other Surgical History: braces on bilat feet with no surgery - Social History Smoking Status: Never smoker How long have you smoked: 5 Exposure to second hand smoke: Yes Drug Use: marijuana Patient Lives Alone: No - Female History Hx Now: Yes - Nursing Vital Signs Nursing Vital Signs: Initial Vital Signs Temperature 97.8 F 01/24/18 08:23 Pulse Rate 77 01/24/18 08:23 Respiratory Rate 18 01/24/18 08:23 Blood Pressure 130/78 01/24/18 08:23 O2 Sat by Pulse Oximetry 100 01/24/18 08:23 Pain Scale Pain Intensity 4 - Physical Exam General Appearance: no apparent distress Eye Exam: eyes nml inspection Ears, Nose, Throat Exam: moist mucous membranes Neck Exam: normal inspection Respiratory Exam: No respiratory distress Gastrointestinal/Abdomen Exam: tenderness, No rebound Extremity Exam: normal inspection Neurologic Exam: alert, oriented x 3, cooperative Skin Exam: normal color, warm, dry SpO2 Interpretation: normal SpO2: 100 Oxygen Delivery: Room Air - Course Nursing assessment & vital signs reviewed: Yes - Radiology Ultrasound Exam OB Ultrasound: discussed w/radiologist, Other (inevidtable ) Ordered Tests: Active Orders 24 hr Category Date Time Status IV Insertion STAT Care 01/24/18 08:26 Active OB <14 WKS 1ST GESTATION [US] Stat Exams 01/24/18 08:26 Completed CBC W DIFF Stat Lab 01/24/18 08:26 Completed CULTURE,URINE Stat Lab 01/24/18 09:10 Received HCG, Quantitative (Inhouse) Stat Lab 01/24/18 08:50 Received UA W/ MICROSCOPIC Stat Lab 01/24/18 09:10 Completed Medication Summary Discontinued Medications Generic Name Dose Route Start Last Admin Trade Name Freq PRN Reason Stop Dose Admin Lactated Ringer's 1,000 mls @ 999 mls/hr 01/24/18 08:26 01/24/18 08:42 Lactated Ringers IV 01/24/18 09:26 999 mls/hr .Q1H1M ONE Administration Lactated Ringer's Confirm 01/24/18 08:33 Lactated Ringers Administered 01/24/18 08:34 Dose 1,000 mls @ ud IV .STK-MED ONE Morphine Sulfate 4 mg 01/24/18 08:33 01/24/18 08:45 Morphine Sulfate 10 Mg/Ml IV 01/24/18 08:34 4 mg STAT ONE Administration Morphine Sulfate Confirm 01/24/18 08:39 Morphine Sulfate 4 Mg Inj Administered 01/24/18 08:40 Dose 4 mg .ROUTE .STK-MED ONE Ondansetron HCl 4 mg 01/24/18 08:26 01/24/18 08:42 Zofran 4 Mg/2 Ml Vial IV 01/24/18 08:27 4 mg STAT ONE Administration Ondansetron HCl Confirm 01/24/18 08:33 Zofran 4 Mg/2 Ml Vial Administered 01/24/18 08:34 Dose 4 mg .ROUTE .STK-MED ONE Lab/Rad Data: Laboratory Result Diagrams 01/24/18 08:26 Laboratory Results 01/24/18 01/24/18 01/24/18 Range/Units 09:10 08:50 08:26 WBC 18.2 H (4.0-10.5) K/mm3 RBC 4.07 L (4.1-5.4) M/mm3 Hgb 13.3 (12.0-16.0) gm/dl Hct 39.0 (35-47) % MCV 95.8 (78-100) fl MCH 32.6 H (26-32) pg MCHC 34.1 (32-36) g/dl RDW 13.1 (11.5-14.0) % Plt Count 209 (150-450) K/mm3 MPV 11.8 H (6-9.5) fl Gran % 84.7 H (36.0-66.0) % Eos # (Auto) 0.05 (0-0.5) Absolute Lymphs (auto) 1.78 (1.0-4.6) Absolute Monos (auto) 0.92 (0.0-1.3) Lymphocytes % 9.8 L (24.0-44.0) % Monocytes % 5.1 (0.0-12.0) % Eosinophils % 0.3 (0.00-5.0) % Basophils % 0.1 (0.0-0.4) % Absolute Granulocytes 15.39 H (1.4-6.9) Basophils # 0.01 (0-0.4) Ur Collection Type CATH Urine Color YELLOW (YELLOW) Urine Appearance CLEAR (CLEAR) Urine pH 5.0 (5-6) Ur Specific [place] 1.025 (1.005-1.025) Urine Protein NEGATIVE (Negative) Urine Ketones NEGATIVE (NEGATIVE) Urine Blood 250 (0-5) Antonio/ul Urine Nitrite NEGATIVE (NEGATIVE) Urine Bilirubin NEGATIVE (NEGATIVE) Urine Urobilinogen NORMAL (0-1) mg/dL Ur Leukocyte Esterase TRACE (NEGATIVE) Urine Microscopic RBC 5-10 (0-2) /HPF Urine Microscopic WBC 2-5 (0-5) /HPF Ur Epithelial Cells FEW (FEW) /HPF Urine Bacteria FEW (NEGATIVE) /HPF Urine Mucus SLIGHT (NEGATIVE) /HPF Urine Culture Reflexed YES (NO) Urine Glucose NEGATIVE (NEGATIVE) mg/dL Specimen Received 01/24/18 0900 Rh Factor POSITIVE - Progress Progress: improved Progress Note: 01/24/18 09:49 treatment and disposition d/w Dr Martinez Antibiotics given: No Will see patient in: office Counseled pt/family regarding: lab results, diagnosis, need for follow-up, rad results - Departure Time of Disposition: 09:49 Departure Disposition: Home Clinical Impression: Miscarriage, threatened, early Condition: Stable Critical Care Time: No Referrals: HEMAL SEAMAN [Primary Care Provider] - Instructions: Threatened Miscarriage (DC) Additional Instructions: call Dr Martinez, return if worse, return if passing clots, dizzy, NV, fever, intense cramping
[2018-01-24] MEDS ORDERED: Zofran 4 MG/2 ML VIAL ONE (08:33)
[2018-01-24] MEDS ORDERED: MORPHINE SULFATE 10 MG/ML IV ONE (08:33)
[2018-01-24] MEDS ORDERED: MORPHINE SULFATE 4 MG INJ ONE (08:39)
[2018-01-24 09:19] LABS: BASOPHIL % 0.1 % (0.0-0.4); Basophil (Absolute #) 0.01 (0-0.4); Eosinophil % 0.3 % (0.00-5.0); Eosinophil (Absolute #) 0.05 (0-0.5); Granulocyte Absolute (ANC) 15.39 (1.4-6.9); Granulocytes % 84.7 % (36.0-66.0); Hemoglobin 13.3 gm/dl (12.0-16.0); Lymphocyte (Absolute #) 1.78 (1.0-4.6); Lymphocytes % 9.8 % (24.0-44.0); Mean Cell Volume 95.8 fl (78-100); Mean Corpuscular Hgb Concent. 34.1 g/dl (32-36); Mean Platelet Volume 11.8 fl (6-9.5); Monocyte (Absolute #) 0.92 (0.0-1.3); Monocytes % 5.1 % (0.0-12.0); Platelet Count 209 K/mm3 (150-450); Red Blood Count 4.07 M/mm3 (4.1-5.4); Red Cell Distribution Width 13.1 % (11.5-14.0); White Blood Count 18.2 K/mm3 (4.0-10.5)
[2018-01-24 09:22] LABS: Mean Corpuscular Hemoglobin 32.6 pg (26-32)
--- NOTE | 2018-01-24 09:31 | XRAY ---
Indication: Vaginal bleeding. Transabdominal early OB ultrasound performed. Comparison: January 17, 2018. Previous gestational sac appears deformed and now seen in the lower uterine segment. No pole/heart tones. Cervix is slightly open. Left and right ovaries unremarkable. No suspicious adnexal mass or free fluid. Impression: Sonographic findings favoring inevitable .
[2018-01-24 09:35] LABS: Appearance CLEAR (CLEAR); Bilirubin NEGATIVE (NEGATIVE); Blood 250 Ery/ul (0-5); Glucose NEGATIVE (NEGATIVE); Ketones NEGATIVE (NEGATIVE); Leukocyte Esterase TRACE (NEGATIVE); Mucus SLIGHT /HPF (NEGATIVE); Nitrite NEGATIVE (NEGATIVE); Protein,Urine Dip NEGATIVE (Negative); Specific Gravity 1.025 (1.005-1.025); Urobilinogen NORMAL mg/dL (0-1)
[2018-01-24 09:36] LABS: Bacteria FEW /HPF (NEGATIVE); Epithelial Cells FEW /HPF (FEW)
[2018-01-24 10:14] VITALS: BP 115/68; PULSE 70; O2SAT 99
== END 2018-01-24 10:00 | disposition home or self-care (01) ==
LOC: ED 08:17
DX: O20.0 Threatened abortion (principal); Z3A.00 Weeks of gestation of pregnancy not specified
CPT/HCPCS: 36000; 36415; 76801; 81000; 84702; 85025; 86901; 87086; 96360; 96374; 96375; 99284; J2270; J2405

== ENCOUNTER 2020-03-20 05:31 | Observation (INO) | payer OTHER ==
[2020-03-20 06:19] LABS: Appearance CLOUDY (CLEAR); Bacteria MODERATE /HPF (NEGATIVE); Bilirubin NEGATIVE (NEGATIVE); Blood NEGATIVE Ery/ul (0-5); Epithelial Cells RARE /HPF (FEW); Glucose NEGATIVE (NEGATIVE); Ketones NEGATIVE (NEGATIVE); Leukocyte Esterase TRACE (NEGATIVE); Mucus SLIGHT /HPF (NEGATIVE); Nitrite NEGATIVE (NEGATIVE); Protein,Urine Dip NEGATIVE (Negative); Urobilinogen 2 mg/dL (0-1)
[2020-03-20 07:16] VITALS: O2SAT 87
[2020-03-20 07:58] VITALS: BP 105/60; PULSE 80
[2020-03-20 07:59] LABS: Amphetamine,Urine NEGATIVE (NEGATIVE); Barbiturate,Urine NEGATIVE (NEGATIVE); Benzodiazepine,Urine NEGATIVE (NEGATIVE); Cocaine,Urine NEGATIVE (NEGATIVE); Methadone,Urine NEGATIVE (NEGATIVE); Opiate,Urine NEGATIVE (NEGATIVE); PCP,Urine NEGATIVE (NEGATIVE); THC,Urine NEGATIVE (NEGATIVE)
[2020-03-20 08:59] LABS: Absolute Neutrophil Ct (ANC) 8.03 (1.4-6.9); BASOPHIL % 0.2 % (0.0-0.4); Basophil (Absolute #) 0.02 (0-0.4); Eosinophil % 0.6 % (0.00-5.0); Eosinophil (Absolute #) 0.07 (0-0.5); Hematocrit 34.6 % (35-47); Hemoglobin 11.4 gm/dl (12.0-16.0); Lymphocyte (Absolute #) 2.12 (1.0-4.6); Lymphocytes % 18.8 % (24.0-44.0); Mean Cell Volume 97.5 fl (78-100); Mean Corpuscular Hemoglobin 32.1 pg (26-32); Mean Corpuscular Hgb Concent. 32.9 g/dl (32-36); Mean Platelet Volume 11.8 fl (7.5-11.0); Monocyte (Absolute #) 1.06 (0.0-1.3); Monocytes % 9.4 % (0.0-12.0); Platelet Count 224 K/mm3 (150-450); Red Blood Count 3.55 M/mm3 (4.1-5.4); Red Cell Distribution Width 13.7 % (11.5-14.0); White Blood Count 11.3 K/mm3 (4.0-10.5)
[2020-03-20] MEDS ORDERED: PITOCIN 30 UNITS/ LR 500 ML 500 ML IV ONE (09:17)
[2020-03-20] MEDS ORDERED: ROCEPHIN 1 Gm-D5w 50 ml Bag** 1 G/50 ML IVPB IV ONE (10:00)
[2020-03-20 11:16] LABS: Appearance CLEAR (CLEAR); Bilirubin NEGATIVE (NEGATIVE); Blood NEGATIVE Ery/ul (0-5); Glucose NEGATIVE (NEGATIVE); Ketones NEGATIVE (NEGATIVE); Leukocyte Esterase NEGATIVE (NEGATIVE); Nitrite NEGATIVE (NEGATIVE); Protein,Urine Dip NEGATIVE (Negative); RBC 0-2 /HPF (0-2); Specific Gravity 1.014 (1.005-1.025); Urobilinogen NEGATIVE mg/dL (0-1)
== END 2020-03-20 11:20 | disposition home or self-care (01) ==
LOC: OB 05:31
PROVIDERS: ADMIT Obstetrics & Gynecology; ATTEND Obstetrics & Gynecology
DX: O23.02 Infections of kidney in pregnancy, second trimester (principal); Z3A.24 24 weeks gestation of pregnancy
CPT/HCPCS: 36415; 80307; 81001; 85025; 87086; G0378; 99219; J0696; J2590

== ENCOUNTER 2020-06-09 23:15 | Observation (INO) | payer OTHER ==
[2020-06-09 23:55] VITALS: O2SAT 96
[2020-06-09 23:58] LABS: Amphetamine,Urine NEGATIVE (NEGATIVE); Barbiturate,Urine NEGATIVE (NEGATIVE); Benzodiazepine,Urine NEGATIVE (NEGATIVE); Cocaine,Urine NEGATIVE (NEGATIVE); Methadone,Urine NEGATIVE (NEGATIVE); Opiate,Urine NEGATIVE (NEGATIVE); PCP,Urine NEGATIVE (NEGATIVE); THC,Urine NEGATIVE (NEGATIVE)
[2020-06-10 01:37] VITALS: BP 110/60; PULSE 88
== END 2020-06-10 00:50 | disposition home or self-care (01) ==
LOC: OB 23:15
PROVIDERS: ADMIT Obstetrics & Gynecology; ATTEND Obstetrics & Gynecology
DX: Z34.83 Encounter for supervision of other normal pregnancy, third trimester (principal); Z3A.35 35 weeks gestation of pregnancy
CPT/HCPCS: 80307; 84112; G0378

== ENCOUNTER 2020-07-07 08:34 | Observation (INO) | payer OTHER ==
[2020-07-07 10:17] LABS: Absolute Neutrophil Ct (ANC) 7.45 (1.4-6.9); BASOPHIL % 0.1 % (0.0-0.4); Basophil (Absolute #) 0.01 (0-0.4); Eosinophil % 0.2 % (0.00-5.0); Eosinophil (Absolute #) 0.02 (0-0.5); Hematocrit 38.6 % (35-47); Hemoglobin 12.7 gm/dl (12.0-16.0); Lymphocyte (Absolute #) 1.57 (1.0-4.6); Lymphocytes % 15.7 % (24.0-44.0); Mean Cell Volume 97.5 fl (78-100); Mean Corpuscular Hemoglobin 32.1 pg (26-32); Mean Corpuscular Hgb Concent. 32.9 g/dl (32-36); Mean Platelet Volume 12.8 fl (7.5-11.0); Monocyte (Absolute #) 0.95 (0.0-1.3); Monocytes % 9.5 % (0.0-12.0); Neutrophil % 74.5 % (36.0-66.0); Platelet Count 170 K/mm3 (150-450); Red Blood Count 3.96 M/mm3 (4.1-5.4); Red Cell Distribution Width 14.2 % (11.5-14.0)
[2020-07-07 10:27] LABS: ALBUMIN 3.4 g/dL (3.5-5.0); ALKALINE PHOSPHATASE 104 U/L (38-126); ANION GAP 9.2 MEQ/L (5-15); BLOOD UREA NITROGEN 11 mg/dL (7-17); CHLORIDE 110 mmol/L (98-107); Calcium 8.9 mg/dL (8.4-10.2); Carbon Dioxide 20 mmol/L (22-30); Creatinine 1 0.49 mg/dL (0.52-1.04); EST GLOMERULAR FILTRATION RATE > 60.0 ML/MIN; Glucose 95 mg/dL (74-106); SGOT/AST 25 U/L (14-36); SGPT/ALT 19 U/L (0-35); SODIUM 135 mmol/L (137-145); Total Protein 6.5 g/dL (6.3-8.2)
--- NOTE | 2020-07-07 11:03 | XRAY ---
Indication: induced hypertension. Ultrasound biophysical profile exam performed. Comparison: None There is a single viable intrauterine with heart rate 142 BPM. Four-quadrant GLADYS is 6.7 cm. 2 points given for breathing, movements, tone, and qualitative amniotic fluid volume. Impression: Total biophysical profile score is 8 out of 8.
[2020-07-07 11:08] VITALS: O2SAT 97
[2020-07-07 11:52] VITALS: BP 115/64; PULSE 75
== END 2020-07-07 12:15 | disposition home or self-care (01) ==
LOC: WHC 08:34 → OB 09:04
PROVIDERS: ADMIT Obstetrics & Gynecology; ATTEND Obstetrics & Gynecology
DX: O14.93 Unspecified pre-eclampsia, third trimester (principal); Z3A.39 39 weeks gestation of pregnancy
CPT/HCPCS: 36415; 59025; 59426; 76818; 80053; 81002; 84550; 85025; G0378

== ENCOUNTER 2020-07-10 01:30 | Inpatient (IN) | payer OTHER ==
[2020-07-10] MEDS ORDERED: Zofran 4 MG/2 ML VIAL IV PRN (08:00)
[2020-07-10] MEDS ORDERED: PITOCIN 30 UNITS/ LR 500 ML 30 UNITS/500 ML IV.SOLN. IV SCH ×2 (08:00→22:30)
[2020-07-10] MEDS ORDERED: XYLOCAINE 1% HCL 20 ML MDV IJ PRN (08:00)
[2020-07-10] MEDS ORDERED: TYLENOL EXTRA STRENGTH 500 MG PO PRN (08:00)
[2020-07-10 09:30] LABS: Absolute Neutrophil Ct (ANC) 8.67 (1.4-6.9); BASOPHIL % 0.2 % (0.0-0.4); Basophil (Absolute #) 0.02 (0-0.4); Eosinophil % 0.5 % (0.00-5.0); Eosinophil (Absolute #) 0.06 (0-0.5); Hematocrit 38.5 % (35-47); Hemoglobin 12.7 gm/dl (12.0-16.0); Lymphocyte (Absolute #) 2.19 (1.0-4.6); Lymphocytes % 18.3 % (24.0-44.0); Mean Cell Volume 97.7 fl (78-100); Mean Corpuscular Hemoglobin 32.2 pg (26-32); Mean Platelet Volume 13.3 fl (7.5-11.0); Monocyte (Absolute #) 1.06 (0.0-1.3); Monocytes % 8.8 % (0.0-12.0); Neutrophil % 72.2 % (36.0-66.0); Platelet Count 175 K/mm3 (150-450); Red Blood Count 3.94 M/mm3 (4.1-5.4); Red Cell Distribution Width 14.1 % (11.5-14.0)
[2020-07-10 10:16] LABS: ALBUMIN 3.4 g/dL (3.5-5.0); ALKALINE PHOSPHATASE 112 U/L (38-126); ANION GAP 10.3 MEQ/L (5-15); BLOOD UREA NITROGEN 10 mg/dL (7-17); CHLORIDE 108 mmol/L (98-107); Calcium 9.1 mg/dL (8.4-10.2); Carbon Dioxide 20 mmol/L (22-30); Creatinine 1 0.54 mg/dL (0.52-1.04); EST GLOMERULAR FILTRATION RATE > 60.0 ML/MIN; Glucose 104 mg/dL (74-106); Potassium 3.8 mmol/L (3.5-5.1); SGOT/AST 24 U/L (14-36); SGPT/ALT 18 U/L (0-35); SODIUM 134 mmol/L (137-145); Total Protein 6.4 g/dL (6.3-8.2); Uric Acid 6.8 mg/dL (2.6-6.0)
[2020-07-10 10:46] LABS: Slide Review 1 YES
[2020-07-10 11:56] LABS: Amphetamine,Urine NEGATIVE (NEGATIVE); Barbiturate,Urine NEGATIVE (NEGATIVE); Benzodiazepine,Urine NEGATIVE (NEGATIVE); Cocaine,Urine NEGATIVE (NEGATIVE); Methadone,Urine NEGATIVE (NEGATIVE); Opiate,Urine NEGATIVE (NEGATIVE); PCP,Urine NEGATIVE (NEGATIVE); THC,Urine NEGATIVE (NEGATIVE)
[2020-07-10] MEDS ORDERED: STADOL 2 MG IV ONE (18:50)
[2020-07-10] MEDS: Lactated Ringers 1,000 ML IV SCH ×2 (19:03→21:44)
[2020-07-10] MEDS ORDERED: OB EPIDURAL NAROPIN/SUFENTANIL IN NACL EPIDURAL PRN (19:30)
[2020-07-10] MEDS ORDERED: Lactated Ringers 1,000 ML IV ONE (19:30)
[2020-07-10] MEDS ORDERED: Ephedrine Sulfate 50 MG/ML IV PRN (19:30)
[2020-07-10] MEDS ORDERED: BRETHINE 1 MG/ML SQ PRN (22:05)
[2020-07-11] MEDS: Lactated Ringers 1,000 ML IV SCH (02:03)
[2020-07-11] MEDS ORDERED: MOTRIN 400 MG PO PRN (03:21)
[2020-07-11] MEDS ORDERED: Dermoplast Spray TP PRN ×2 (03:21→08:36)
[2020-07-11] MEDS ORDERED: Ambien 10 MG PO PRN (08:36)
[2020-07-11] MEDS ORDERED: Mylicon 80MG PO PRN (08:36)
[2020-07-11] MEDS ORDERED: TUCKS TP PRN (08:36)
[2020-07-11] MEDS ORDERED: CORTISONE 1% CREAM TP PRN (08:36)
[2020-07-11] MEDS ORDERED: LANSINOH 40 GM TOP PRN (08:36)
[2020-07-11] MEDS ORDERED: NORCO 5/325 MG PO PRN (08:36)
[2020-07-11] MEDS: MOTRIN 400 MG PO PRN ×3 (08:56→23:42)
[2020-07-11] MEDS: Colace 100 MG PO SCH ×2 (08:57→22:17)
[2020-07-11] MEDS: FERREX 150 PO SCH (08:57)
[2020-07-11] MEDS ORDERED: Colace 100 MG PO SCH (10:00)
[2020-07-11] MEDS ORDERED: Adacel Vial IM ONE (12:00)
[2020-07-11 12:15] LABS: Absolute Neutrophil Ct (ANC) 12.97 (1.4-6.9); BASOPHIL % 0.1 % (0.0-0.4); Basophil (Absolute #) 0.02 (0-0.4); Eosinophil % 0.2 % (0.00-5.0); Eosinophil (Absolute #) 0.03 (0-0.5); Hemoglobin 11.1 gm/dl (12.0-16.0); Lymphocyte (Absolute #) 2.28 (1.0-4.6); Lymphocytes % 13.7 % (24.0-44.0); Mean Cell Volume 98.6 fl (78-100); Mean Corpuscular Hemoglobin 32.2 pg (26-32); Mean Corpuscular Hgb Concent. 32.6 g/dl (32-36); Monocyte (Absolute #) 1.32 (0.0-1.3); Monocytes % 7.9 % (0.0-12.0); Neutrophil % 78.1 % (36.0-66.0); Platelet Count 155 K/mm3 (150-450); Red Blood Count 3.45 M/mm3 (4.1-5.4); Red Cell Distribution Width 14.1 % (11.5-14.0); White Blood Count 16.6 K/mm3 (4.0-10.5)
[2020-07-12] MEDS: MOTRIN 400 MG PO PRN ×3 (07:03→23:47)
[2020-07-12] MEDS: FERREX 150 PO SCH (09:36)
[2020-07-12] MEDS: Colace 100 MG PO SCH ×2 (09:36→22:32)
[2020-07-12] MEDS ORDERED: FLUZONE QUAD 2020-2021 SYRINGE IM ONE (10:00)
[2020-07-12 20:48] VITALS: O2SAT 98
[2020-07-13 02:28] VITALS: PULSE 84
[2020-07-13] MEDS: MOTRIN 400 MG PO PRN (08:22)
[2020-07-13 08:34] VITALS: BP 111/59
--- NOTE | 2020-07-13 10:16 | PCM.NOTE ---
Date and Time: 07/13/20 1015 Subjective Assessment: PPD 2 PT RESTING IN BED AND DOING WELL. PT EAGER TO GO HOME VSS AFEBRILE ABD; SOFT UTERUS; FIRM LOCHIA; MILD A/P SP PPD 2 DC HOME TODAY FU OFFICE IN 6 WKS OBJECTIVE DATA Vital Signs: Vital Signs - 24 hr Temp Pulse Resp BP Pulse Ox 07/13/20 08:00 97.6 F 84 18 111/59 98 07/13/20 02:00 98 F 84 18 119/60 98 07/12/20 20:00 98.1 F 79 20 119/73 98 07/12/20 14:00 98.0 F 85 18 118/63 99 Pain Assessment - Last Documented Pain Intensity [Bilateral 0 Anterior/Posterior Medial] Pain Intensity 3 Pain Scale Used 0-10 Pain Scale Intake and Output: Intake & Output 07/10/20 07/11/20 07/12/20 07/13/20 11:59 11:59 11:59 11:59 Intake Total 100 740 240 Output Total 1200 Balance -1100 740 240 Weight 108.862 kg
--- NOTE | 2020-07-13 10:17 | PCM.DCORD ---
- Discharge Discharge Date: 07/13/20 Prescriptions: No Action Metformin HCl 500 mg [Glucophage 500 MG] 500 mg PO BID Vit#96/Ferrous Fum/FA [ Tablet] 1 tab PO DAILY Follow up with: BELINDA SERRANO DO [Primary Care Provider] - Call for Appointment (SHOULD CALL FOR APPT FOR 6 WKS) Forms: OB Discharge Instructions
--- NOTE | 2020-07-13 10:20 | PCM.DS ---
Discharge Summary Date of Admission: 07/10/20 18:43 Date of Discharge: 07/13/20 Admitting Physician: BELINDA SERRANO DO Consults: Consults on Case 07/10/20 19:30 Notify Anesthesia Provider PRN 07/11/20 08:36 Notify Physician ROUTINE Primary Care Provider: BELINDA SERRANO DO Allergies Allergies Penicillins Allergy (Mild, Verified 06/09/20 23:59) Rash Hospital Summary - Hospital Course Hospital Course: PT ADMITTED ON JUL 10 FOR INDUCTION WITH CYTOTEC AND HAD TWO DOSES OF CYTOTEC BEFORE PITOCIN WAS STARTED AND SUBSEQUENTLY DELIVERED [facility] WITHOUT COMPLICATION ON JUL 11 [facility] VIA [facility] ASSISTED DELIVERY SECONDARY TO [facility]. DURING PERIOD PT DID VERY WELL AND HAD STABLE H/H AT THIS TIME WITH HGB BEING 11. AT THIS TIME PT IS STABLE FOR DISCHARGE AND WAS ADVISED TO FU IN OFFICE IN 6 WKS FOR CARE. ALL QUESTIONS ANSWERED TO HER SATISFACTION. - Vitals & Intake/Output Vital Signs: Vital Signs Temperature 97.6 F 07/13/20 08:00 Pulse Rate 84 07/13/20 08:00 Respiratory Rate 18 07/13/20 08:00 Blood Pressure 111/59 07/13/20 08:00 O2 Sat by Pulse Oximetry 98 07/13/20 08:00 Intake & Output: Intake & Output 07/10/20 07/11/20 07/12/20 07/13/20 11:59 11:59 11:59 11:59 Intake Total 100 740 240 Output Total 1200 Balance -1100 740 240 Weight 108.862 kg - Lab Result Diagrams: 07/11/20 11:58 07/10/20 08:45 Micro Results-Entire Visit: Microbiology 07/10/20 20:46 Urine Culture - Final Catherized NO GROWTH - Discharge Disposition: Home, Self-Care Condition: Stable Prescriptions: No Action Metformin HCl 500 mg [Glucophage 500 MG] 500 mg PO BID Vit#96/Ferrous Fum/FA [ Tablet] 1 tab PO DAILY Follow up with: BELINDA SERRANO DO [Primary Care Provider] - Call for Appointment (SHOULD CALL FOR APPT FOR 6 WKS) Forms: OB Discharge Instructions
== END 2020-07-13 10:10 | disposition home or self-care (01) | DRG 807 ==
LOC: OB 08:06 → OBSVTOIN 18:43
PROVIDERS: ADMIT Obstetrics & Gynecology; ATTEND Obstetrics & Gynecology
PROC: 10D07Z6 Extraction of Products of Conception, Vacuum, Via Natural or Artificial Opening (ICD-10-PCS; principal; 2020-07-11)
PROC: 0KQM0ZZ Repair Perineum Muscle, Open Approach (ICD-10-PCS; 2020-07-11)
DX: O76 Abnormality in fetal heart rate and rhythm complicating labor and delivery (principal); Z37.0 Single live birth; O70.1 Second degree perineal laceration during delivery; Z3A.40 40 weeks gestation of pregnancy
CPT/HCPCS: 36415; 59025; 59409; 76818; 80053; 80307; 81002; 82570; 84156; 84550; 85025; 87086; 87340; 90715; G0378; J0595; J2405; J2590; J2795; A9270-GY

== ENCOUNTER 2022-07-25 18:07 | Emergency (ER) | payer OTHER ==
[2022-07-25] MEDS ORDERED: TYLENOL 325 MG PO ONE (18:18)
[2022-07-25] MEDS ORDERED: TYLENOL 325 MG ONE (18:30)
--- NOTE | 2022-07-25 18:34 | ERPHSYRPT ---
- History of Present Illness Source: patient Exam Limitations: no limitations Patient Subjective Stated Complaint: Pt states "I hurt really bad in my back and hips. I have had a fever at home." Triage Nursing Assessment: Pt presetned alert and oriented X 3, skin wpd. pt un able to sit still. Pt restless Timing/Duration: yesterday Severity: moderate Associated Symptoms: chills, fever, malaise, weakness, other (hip and back pain) Hx Tetanus, Diphtheria Vaccination/Date Given: Yes Hx Influenza Vaccination/Date Given: No Hx Pneumococcal Vaccination/Date Given: No Immunizations Up to Date: Yes <GERA MARRERO - Last Filed: 07/25/22 18:30> <NADEEM BUENO - Last Filed: 07/25/22 19:43> - History of Present Illness Time Seen by Provider: 07/25/22 18:30 Physician History: Pt states "I hurt really bad in my back and hips. I have had a fever at home." Patient is 27-year-old female came to the emergency room with 1 day history of generalized malaise low back pain hip pain fever chills and some short of b reath. She was doing okay till yesterday afternoon and then her symptoms started. She has a recent exposure to COVID virus. Her son is also sick with fever and flulike symptoms. (GEAR MARRERO) Allergies/Adverse Reactions: Penicillins Allergy (Mild, Verified 12/17/21 13:43) Rash Home Medications: Metformin HCl 500 mg [Glucophage 500 MG] 500 mg PO BID 03/20/20 [History] Vit#96/Ferrous Fum/FA [ Tablet] 1 tab PO DAILY 03/20/20 [History] Travel Risk - International Travel Have you traveled outside of the country in past 3 weeks: No - Coronavirus Screening Symptoms: Fever, Cough: New Onset Close contact with a COVID-19 positive Pt in past 14-21 Days: No - Vaccine Status Have you recieved a Covid-19 vaccination: Yes Slate Mixer: Pfizer - Vaccination Dates Date of 2cond Vaccination (if applicable): 2020 <GERA MARRERO - Last Filed: 07/25/22 18:30> - Review of Systems Constitutional: Fever, Chills, Malaise, Weakness Eyes: No Symptoms Ears, Nose, & Throat: No Symptoms Respiratory: Cough, Dyspnea Cardiac: No Chest Pain, No Edema, No Syncope Abdominal/Gastrointestinal: No Abdominal Pain, No Nausea, No Vomiting, No Diarrhea Genitourinary Symptoms: No Dysuria Musculoskeletal: Back Pain, Joint Pain (hip pain), Myalgias, No Neck Pain Skin: No Rash Neurological: No Dizziness, No Focal Weakness, No Sensory Changes Psychological: No Symptoms Endocrine: No Symptoms All Other Systems: Reviewed and Negative <JANES,GERA - Last Filed: 07/25/22 18:30> - Past Medical History Pertinent Past Medical History: Yes Neurological History: No Pertinent History ENT History: No Pertinent History Cardiac History: No Pertinent History Respiratory History: No Pertinent History Endocrine Medical History: No Pertinent History Musculoskeletal History: No Pertinent History GI Medical History: No Pertinent History History: No Pertinent History Psycho-Social History: Anxiety Female Reproductive Disorders: Other Other Medical History: PCOS - Past Surgical History Past Surgical History: Yes Musculoskeletal: Orthopedic Surgery Female Surgical History: Dilation & Curettage Other Surgical History: BILATERAL FEET, DURING CHILDHOOD - Social History Smoking Status: Former smoker How long have you smoked: 7 years Exposure to second hand smoke: No Drug Use: none Patient Lives Alone: No - Female History Hx Last Menstrual Period: 05/21/2022 Hx Now: (unknown) <JANES, - Last Filed: 07/25/22 18:30> - Physical Exam General Appearance: mild distress, alert Eye Exam: PERRL/EOMI, eyes nml inspection Ears, Nose, Throat Exam: normal ENT inspection, TMs normal, pharynx normal, moist mucous membranes Neck Exam: normal inspection, non-tender, supple, full range of motion Respiratory Exam: diminished breath sounds, wheezing, No respiratory distress Cardiovascular Exam: regular rate/rhythm, normal heart sounds, normal peripheral pulses Gastrointestinal/Abdomen Exam: soft, normal bowel sounds, No tenderness, No mass Pelvic Exam: not done Back Exam: normal inspection, normal range of motion, other (myalgia), No CVA tenderness, No vertebral tenderness Extremity Exam: normal inspection, normal range of motion, pelvis stable Neurologic Exam: alert, oriented x 3, cooperative, normal mood/affect, nml cerebellar function, nml station & gait, sensation nml, No motor deficits Skin Exam: normal color, warm, dry, No rash Lymphatic Exam: No adenopathy SpO2: 99 <GERA MARRERO - Last Filed: 07/25/22 18:30> - Nursing Vital Signs Nursing Vital Signs: Initial Vital Signs Temperature 98.3 F 07/25/22 18:21 Pulse Rate 125 H 07/25/22 18:21 Respiratory Rate 20 07/25/22 18:21 Blood Pressure 104/71 07/25/22 18:21 O2 Sat by Pulse Oximetry 99 07/25/22 18:21 Pain Scale Pain Intensity 9 - Course Nursing assessment & vital signs reviewed: Yes - Radiology Exams Chest X-ray Interpretation: Reviewed by me <GERA MARRERO - Last Filed: 07/25/22 18:30> Ordered Tests: Active Orders 24 hr Category Date Time Status CHEST 2 VIEWS (PA AND LAT) Stat Exams 07/25/22 18:19 Taken CBC W DIFF Stat Lab 07/25/22 18:37 Completed CMP Stat Lab 07/25/22 18:37 Completed CULTURE,URINE Stat Lab 07/25/22 18:33 Received HCG,QUALITATIVE URINE Stat Lab 07/25/22 19:06 Completed UA W/RFX CULTURE Stat Lab 07/25/22 18:33 Completed Medication Summary Discontinued Medications Generic Name Dose Route Start Last Admin Trade Name Alfreda PRN Reason Stop Dose Admin Acetaminophen 650 mg 07/25/22 18:18 07/25/22 18:31 Acetaminophen 325 Mg Tablet PO 07/25/22 18:19 650 mg STAT ONE Administration Acetaminophen Confirm 07/25/22 18:30 Acetaminophen 325 Mg Tablet Administered 07/25/22 18:31 Dose 650 mg .ROUTE .STK-MED ONE Hydromorphone HCl 1 mg 07/25/22 19:17 07/25/22 19:25 Hydromorphone 1 Mg/1ml Inj 1 Mg/Ml Syringe IV 07/25/22 19:18 Not Given STAT ONE Hydromorphone HCl Confirm 07/25/22 19:20 Hydromorphone 1 Mg/1ml Inj 1 Mg/Ml Syringe Administered 07/25/22 19:21 Dose 1 mg .ROUTE .STK-MED ONE Hydromorphone HCl 1 mg 07/25/22 19:22 07/25/22 19:25 Hydromorphone 1 Mg/1ml Inj 1 Mg/Ml Syringe IM 07/25/22 19:23 1 mg STAT ONE Administration Ondansetron HCl 4 mg 07/25/22 18:55 07/25/22 18:58 Zofran 4 Mg/Udtablet Orally Disintegrating PO 07/25/22 18:56 4 mg STAT ONE Administration Ondansetron HCl Confirm 07/25/22 18:56 Zofran 4 Mg/Udtablet Orally Disintegrating Administered 07/25/22 18:57 Dose 4 mg .ROUTE .STK-MED ONE Lab/Rad Data: Laboratory Result Diagrams 07/25/22 18:37 07/25/22 18:37 Laboratory Results 07/25/22 07/25/22 07/25/22 Range/Units 19:06 18:37 18:37 WBC 15.8 H (4.0-10.5) x10^3/uL RBC 4.53 (4.1-5.4) x10^6/uL Hgb 14.0 (12.0-16.0) g/dL Hct 42.8 (35-47) % MCV 94.5 (78-100) fL MCH 30.9 (26-32) pg MCHC 32.7 (32-36) g/dL RDW 12.6 (11.5-14.0) % Plt Count 210 (150-450) x10^3/uL MPV 11.4 H (7.5-11.0) fL Gran % 87.1 H (36.0-66.0) % Immature Gran % (Auto) 0.6 H (0.00-0.4) % Nucleat RBC Rel Count 0.0 (0.00-0.1) % Eos # (Auto) 0.01 (0-0.5) x10^3/uL Immature Gran # (Auto) 0.09 H (0.00-0.03) x10^3u/L Absolute Lymphs (auto) 0.39 L (1.0-4.6) x10^3/uL Absolute Monos (auto) 1.51 H (0.0-1.3) x10^3/uL Absolute Nucleated RBC 0.00 (0.00-0.01) x10^3u/L Lymphocytes % 2.5 L (24.0-44.0) % Monocytes % 9.5 (0.0-12.0) % Eosinophils % 0.1 (0.00-5.0) % Basophils % 0.2 (0.0-0.4) % Absolute Granulocytes 13.79 H (1.4-6.9) x10^3/uL Basophils # 0.03 (0-0.4) x10^3/uL Sodium 138 (137-145) mmol/L Potassium 3.5 (3.5-5.1) mmol/L Chloride 104 (98-107) mmol/L Carbon Dioxide 25 (22-30) mmol/L Anion Gap 12.8 (5-15) MEQ/L BUN 14 (7-17) mg/dL Creatinine 0.77 (0.52-1.04) mg/dL Estimated GFR > 60.0 ML/MIN Glucose 109 H (74-106) mg/dL Calcium 9.0 (8.4-10.2) mg/dL Total Bilirubin 0.30 (0.2-1.3) mg/dL AST 26 (14-36) U/L ALT 28 (0-35) U/L Alkaline Phosphatase 58 (38-126) U/L Serum Total Protein 8.2 (6.3-8.2) g/dL Albumin 4.7 (3.5-5.0) g/dL Urinalys Dipstick Clnc Urine Color (YELLOW) Urine Appearance (CLEAR) Urine pH (5-6) Ur Specific [place] (1.005-1.025) POC Urine Protein Conf (Negative) Urine Ketones (NEGATIVE) Urine Nitrite (NEGATIVE) Urine Bilirubin (NEGATIVE) Urine Urobilinogen (0-1) mg/dL Urine Leukocytes (NEGATIVE) Urine WBC (Auto) (0-5) /HPF Urine RBC (Auto) (0-2) /HPF U Epithel Cells (Auto) (FEW) /HPF Urine Bacteria (Auto) (NEGATIVE) /HPF Urine RBC (0-5) Antonio/ul Ur Culture Indicated? Urine Glucose (NEGATIVE) mg/dL Urine HCG, Qual NEGATIVE (Negative) Influenza Type A Ag (NEGATIVE) Influenza Type B Ag (NEGATIVE) RSV (PCR) (Negative) SARS-CoV-2 (PCR) (NEGATIVE) 07/25/22 07/25/22 Range/Units 18:33 18:33 WBC (4.0-10.5) x10^3/uL RBC (4.1-5.4) x10^6/uL Hgb (12.0-16.0) g/dL Hct (35-47) % MCV (78-100) fL MCH (26-32) pg MCHC (32-36) g/dL RDW (11.5-14.0) % Plt Count (150-450) x10^3/uL MPV (7.5-11.0) fL Gran % (36.0-66.0) % Immature Gran % (Auto) (0.00-0.4) % Nucleat RBC Rel Count (0.00-0.1) % Eos # (Auto) (0-0.5) x10^3/uL Immature Gran # (Auto) (0.00-0.03) x10^3u/L Absolute Lymphs (auto) (1.0-4.6) x10^3/uL Absolute Monos (auto) (0.0-1.3) x10^3/uL Absolute Nucleated RBC (0.00-0.01) x10^3u/L Lymphocytes % (24.0-44.0) % Monocytes % (0.0-12.0) % Eosinophils % (0.00-5.0) % Basophils % (0.0-0.4) % Absolute Granulocytes (1.4-6.9) x10^3/uL Basophils # (0-0.4) x10^3/uL Sodium (137-145) mmol/L Potassium (3.5-5.1) mmol/L Chloride (98-107) mmol/L Carbon Dioxide (22-30) mmol/L Anion Gap (5-15) MEQ/L BUN (7-17) mg/dL Creatinine (0.52-1.04) mg/dL Estimated GFR ML/MIN Glucose (74-106) mg/dL Calcium (8.4-10.2) mg/dL Total Bilirubin (0.2-1.3) mg/dL AST (14-36) U/L ALT (0-35) U/L Alkaline Phosphatase (38-126) U/L Serum Total Protein (6.3-8.2) g/dL Albumin (3.5-5.0) g/dL Urinalys Dipstick Clnc MAIN LAB Urine Color YELLOW (YELLOW) Urine Appearance SLIGHTLY CLOUDY A (CLEAR) Urine pH 6.0 (5-6) Ur Specific [place] 1.025 (1.005-1.025) POC Urine Protein Conf 30 A (Negative) Urine Ketones MODERATE-40 A (NEGATIVE) Urine Nitrite NEGATIVE (NEGATIVE) Urine Bilirubin SMALL A (NEGATIVE) Urine Urobilinogen 0.2 (0-1) mg/dL Urine Leukocytes NEGATIVE (NEGATIVE) Urine WBC (Auto) 0-2 (0-5) /HPF Urine RBC (Auto) 11-15 A (0-2) /HPF U Epithel Cells (Auto) OCCASIONAL (FEW) /HPF Urine Bacteria (Auto) FEW A (NEGATIVE) /HPF Urine RBC MODERATE A (0-5) Antonio/ul Ur Culture Indicated? YES Urine Glucose NEGATIVE (NEGATIVE) mg/dL Urine HCG, Qual (Negative) Influenza Type A Ag NEGATIVE (NEGATIVE) Influenza Type B Ag NEGATIVE (NEGATIVE) RSV (PCR) NEGATIVE (Negative) SARS-CoV-2 (PCR) POSITIVE A (NEGATIVE) <GERA MARRERO - Last Filed: 07/25/22 18:30> - Departure Departure Disposition: Home Critical Care Time: No <NADEEM BUENO - Last Filed: 07/25/22 19:43> - Departure Clinical Impression: COVID Condition: Stable Referrals: REBECCA WEINBERG NP [Primary Care Provider] - Follow up/PCP as directed Instructions: COVID-19 (DC)
[2022-07-25 18:40] LABS: Absolute Neutrophil Ct (ANC) 13.79 x10^3/uL (1.4-6.9); Basophil (Absolute #) 0.03 x10^3/uL (0-0.4); Eosinophil % 0.1 % (0.00-5.0); Eosinophil (Absolute #) 0.01 x10^3/uL (0-0.5); Hematocrit 42.8 % (35-47); Lymphocyte (Absolute #) 0.39 x10^3/uL (1.0-4.6); Lymphocytes % 2.5 % (24.0-44.0); Mean Cell Volume 94.5 fL (78-100); Mean Corpuscular Hemoglobin 30.9 pg (26-32); Mean Corpuscular Hgb Concent. 32.7 g/dL (32-36); Mean Platelet Volume 11.4 fL (7.5-11.0); Monocyte (Absolute #) 1.51 x10^3/uL (0.0-1.3); Monocytes % 9.5 % (0.0-12.0); Neutrophil % 87.1 % (36.0-66.0); Platelet Count 210 x10^3/uL (150-450); Red Blood Count 4.53 x10^6/uL (4.1-5.4); Red Cell Distribution Width 12.6 % (11.5-14.0); White Blood Count 15.8 x10^3/uL (4.0-10.5)
[2022-07-25 18:52] LABS: ALBUMIN 4.7 g/dL (3.5-5.0); ALKALINE PHOSPHATASE 58 U/L (38-126); ANION GAP 12.8 MEQ/L (5-15); BLOOD UREA NITROGEN 14 mg/dL (7-17); CHLORIDE 104 mmol/L (98-107); Carbon Dioxide 25 mmol/L (22-30); Creatinine 1 0.77 mg/dL (0.52-1.04); EST GLOMERULAR FILTRATION RATE > 60.0 ML/MIN; Glucose 109 mg/dL (74-106); Potassium 3.5 mmol/L (3.5-5.1); SGOT/AST 26 U/L (14-36); SGPT/ALT 28 U/L (0-35); SODIUM 138 mmol/L (137-145); Total Protein 8.2 g/dL (6.3-8.2)
[2022-07-25 18:52] LABS: Appearance SLIGHTLY CLOUDY (CLEAR); Bilirubin SMALL (NEGATIVE); Dipstick done @ ? MAIN LAB; Glucose NEGATIVE (NEGATIVE); Ketones MODERATE-40 (NEGATIVE); Nitrite NEGATIVE (NEGATIVE); Protein,Urine Dip 30 (Negative); RBC MODERATE Ery/ul (0-5); Specific Gravity 1.025 (1.005-1.025); Urobilinogen 0.2 mg/dL (0-1)
[2022-07-25 18:53] LABS: Bacteria FEW /HPF (NEGATIVE); Epithelial Cells OCCASIONAL /HPF (FEW); Urine Cultured Indicated? YES; WBC 0-2 /HPF (0-5)
[2022-07-25] MEDS ORDERED: ZOFRAN ODT 4 MG PO ONE (18:55)
[2022-07-25] MEDS ORDERED: ZOFRAN ODT 4 MG ONE (18:56)
[2022-07-25 19:16] LABS: INFLUENZA A NEGATIVE (NEGATIVE); INFLUENZA B NEGATIVE (NEGATIVE); RESPIRATORY SYNCTIAL VIRUS NEGATIVE (Negative)
[2022-07-25] MEDS ORDERED: Hydromorphone 1 mg/ml Injection IV ONE (19:17)
[2022-07-25] MEDS ORDERED: Hydromorphone 1 mg/ml Injection ONE (19:20)
[2022-07-25] MEDS ORDERED: Hydromorphone 1 mg/ml Injection IM ONE (19:22)
[2022-07-25 19:30] LABS: SARS-CoV-2 Xpert Express POSITIVE (NEGATIVE)
[2022-07-25 20:12] VITALS: BP 108/57; PULSE 88; O2SAT 98
[2022-07-25 23:34] LABS: Slide Review 1 YES
--- NOTE | 2022-07-26 08:38 | XRAY ---
Indication: Fever and cough. Comparison: May 29, 2015 PA/lateral chest remains clear again with a few incidental calcified granulomas. Heart not enlarged. Bony thorax intact. No new/acute findings.
== END 2022-07-25 20:12 | disposition home or self-care (01) ==
LOC: ED 18:07
DX: U07.1 COVID-19 (principal); R50.9 Fever, unspecified; M54.50 Low back pain, unspecified; M25.551 Pain in right hip; M25.552 Pain in left hip; R06.02 Shortness of breath; Z20.822 Contact with and (suspected) exposure to COVID-19; Z79.899 Other long term (current) drug therapy
CPT/HCPCS: 0241U; 36415; 71046; 80053; 81015; 81025; 85025; 87086; 96372; 99284; J1170; Q0162; A9270-GY

== ENCOUNTER 2025-01-25 16:42 | Emergency (ER) | payer OTHER ==
[2025-01-25 16:59] VITALS: TEMP 97.4
--- NOTE | 2025-01-25 17:52 | ERPHSYRPT ---
- History of Present Illness Source: patient Exam Limitations: no limitations Patient Subjective Stated Complaint: pt found out yesterday that she was and Dr. Aaron ordered labs today and she states taht the HCG went down and she has a headache and so she thinks that she is having a miscarriage Triage Nursing Assessment: Pt brought self to the ER, hypertensive, denies pain, pulses normal, skin n/w/d, denies chest pain, no difficulty breathing, denies cramping or bleeding, doesn't appear to be in any distress Physician History: Dr. Aldridge he sent this patient in for an ultrasound. I am not exactly for sure why they got serial hCGs on her but evidently there was a drop. She is not having any symptoms. She is asymptomatic. She has no pelvic pain cramping or anything like that. Dr. ADORNO called us and told us we should get an u ltrasound.She has a history of miscarriage in the past. She did not know she was . She has polycystic ovarian syndrome and her periods are irregular. Her last period was about 4 months ago. She does not know when she could have become impregnated.Evidently the first quantitative hCG 2 days ago was 55,000 and today it was greater than 15,000. I do not knowWhat greater than 15,000 means to know how much greater it was than 15,000. In any event she is asymptomatic. Allergies/Adverse Reactions: Penicillins Allergy (Mild, Verified 01/25/25 16:59) Rash Home Medications: Metoclopramide HCl 1 - 2 tab PO Q8H 01/25/25 [History] Hx Tetanus, Diphtheria Vaccination/Date Given: Yes Hx Influenza Vaccination/Date Given: No Hx Pneumococcal Vaccination/Date Given: No Travel Risk - International Travel Have you traveled outside of the country in past 3 weeks: No - Emerging Infectious Disease Are you exhibiting symptoms associated with any current EIDs: No - Review of Systems Constitutional: No Symptoms Eyes: No Symptoms Respiratory: No Symptoms Cardiac: No Symptoms Abdominal/Gastrointestinal: No Symptoms Musculoskeletal: No Symptoms Skin: No Symptoms Neurological: No Symptoms Psychological: Anxiety All Other Systems: Reviewed and Negative - Past Medical History Pertinent Past Medical History: Yes Neurological History: No Pertinent History ENT History: No Pertinent History Cardiac History: No Pertinent History Respiratory History: No Pertinent History Endocrine Medical History: No Pertinent History Musculoskeletal History: No Pertinent History GI Medical History: No Pertinent History History: No Pertinent History Psycho-Social History: Anxiety Female Reproductive Disorders: Other Other Medical History: PCOS - Past Surgical History Past Surgical History: Yes Musculoskeletal: Orthopedic Surgery Female Surgical History: Dilation & Curettage Other Surgical History: BILATERAL FEET - Female History Hx Last Menstrual Period: PRESENT Hx Now: Yes Gestational Age: 16 weeks - Social History Smoking Status: Former smoker How long have you smoked: 7 years Exposure to second hand smoke: Yes Drug Use: marijuana - Social Determinants of Health Will the patient participate in the screening: Yes Do you worry about a steady place to live?: No Do you have any problems with any of the following?: No known problems In the past 12 months,have you had to go without utilities?: No Transportation Issues: No Has anyone in your support network made you feel unsafe?: No Have you or anyone in your house had to go w/o enough food: No - Nursing Vital Signs Nursing Vital Signs: Initial Vital Signs Temperature 97.4 F 01/25/25 16:50 Pulse Rate 88 01/25/25 16:50 Blood Pressure 146/92 01/25/25 16:50 O2 Sat by Pulse Oximetry 99 01/25/25 16:50 Pain Scale Pain Intensity 0 - Physical Exam General Appearance: no apparent distress Eye Exam: PERRL/EOMI Respiratory Exam: No respiratory distress Cardiovascular Exam: regular rate/rhythm Gastrointestinal/Abdomen Exam: soft, normal bowel sounds Pelvic Exam: other (Deferred and lieu of ultrasound) Neurologic Exam: alert, oriented x 3 Skin Exam: normal color SpO2: 97 - Course Nursing assessment & vital signs reviewed: Yes Ordered Tests: Active Orders 24 hr Category Date Time Status OB <14 WKS 1ST GESTATION [US] Stat Exams 01/25/25 17:09 Taken - Progress Progress: improved Air Movement: good Progress Note: Patient was stable throughout stay. Ultrasound was that showed a viable at about 9 weeks. I think the patient stable enough to go home. 01/25/25 18:07 - Departure Departure Disposition: Home Clinical Impression: 10 weeks gestation of Condition: Stable Critical Care Time: No Referrals: AMADOR MCGINNIS MD [Primary Care Provider, [facility]] - Follow up/PCP as directed Instructions: care
[2025-01-25 18:07] VITALS: RESP 18
[2025-01-25 18:08] VITALS: BP 110/73
[2025-01-25 18:09] VITALS: PULSE 79; O2SAT 97
--- NOTE | 2025-01-25 21:58 | XRAY ---
Indication: Threatened . 2-dimensional transabdominal early OB ultrasound performed. Comparison: None for this . Single intrauterine gestational sac with single pole. Mean crown-rump length is 2.99 cm corresponding to 9 weeks 6 days. heart rate 174 BPM. No abnormal subchorionic fluid. Both ovaries are sonographically unremarkable. No suspicious adnexal mass or free fluid. Impression: Single viable intrauterine measuring 9 weeks 6 days. Expected date confinement August 24, 2025. Comment: Preliminary report was given.
== END 2025-01-25 18:15 | disposition home or self-care (01) ==
LOC: ED 16:42
DX: Z34.81 Encounter for supervision of other normal pregnancy, first trimester (principal); Z79.899 Other long term (current) drug therapy
CPT/HCPCS: 76801; 99283